=== PATIENT | female | born 1955 | race Caucasian/White ===

== ENCOUNTER 2019-12-19 12:17 | Inpatient (IN) | payer OTHER ==
[~2019-12-19] VITALS: Ht 160 cm; Wt 101.6 kg
[2019-12-19 13:02] VITALS: BP 132/84
--- NOTE | 2019-12-19 13:09 | NUR ---
WAIT AT LOBBY. HANDED ON URINE CUP.
--- NOTE | 2019-12-19 13:44 | NUR ---
Patient ambulated to chair A.
--- NOTE | 2019-12-19 15:14 | NUR ---
PT AMBULATED TO ER BED 11
--- NOTE | 2019-12-19 16:01 | NUR ---
DAUGHTER AT BEDSIDE.
--- NOTE | 2019-12-19 16:01 | NUR ---
64 Y/F PRESENTS TO ED WITH COMPLAINTS OF UTI X 3 DAY. PT REPORTS LOW BACK PAIN, ABD CRAMPS 10/10. URINARY FREQUENCY. DENIES ANY BURNING. PT REPORTS NAUSEA, LACK OF APPETITE. PT CO FOUL SMELLING URINE AND STOOL. ABDOMEN SOFT, ROUND, AND BS ACTIVE IN ALL 4 QUADRANTS. PER DAUGHTER PT HAS BEEN ACTING "BIZARRE". PT A &O X 4. HX OF ANXIETY, HTN, DEPRESSION, BARIATRIC SX ALLERGIES- PENICILLIN
--- NOTE | 2019-12-19 16:50 | NUR ---
DR. RODRIGUEZ AT BEDSIDE.
[2019-12-19] MEDS ORDERED: NACL 0.9% 1,000 ML IV SCH (16:57)
[2019-12-19] MEDS ORDERED: LEVOFLOXACIN 500 MG/D5W PREMIX 100 ML IV ONE (17:00)
[2019-12-19] MEDS ORDERED: MORPHINE SULFATE 4 MG/ML SYR IVP ONE (17:10)
[2019-12-19] MEDS ORDERED: ONDANSETRON 4 MG/2 ML VIAL IVP ONE (17:10)
--- NOTE | 2019-12-19 17:16 | NUR ---
PT AT CT VIA AMINATA
--- NOTE | 2019-12-19 17:37 | NUR ---
MORPHINE, ZOFRAN ADMINISTERED. NACL BOLUS AND LEVO RUNNING
[2019-12-19] MEDS ORDERED: ALPR2TAB1 PO (17:48)
[2019-12-19] MEDS ORDERED: QUET100T PO ×2 (17:48→20:13)
[2019-12-19] MEDS ORDERED: SERT100T PO ×2 (17:48→20:13)
[2019-12-19] MEDS ORDERED: ATEN100T6 PO (17:48)
[2019-12-19 18:00] LABS: BASOPHILS # (AUTO) 0.1 K/uL (0.00-0.22); BASOPHILS % (AUTO) 1.4 % (0.0-2.0); EOSINOPHILS # (AUTO) 0.1 K/uL (0-0.4); EOSINOPHILS % (AUTO) 0.8 % (0.0-4.0); HEMATOCRIT 31.9 % (36-48); HEMOGLOBIN 10.3 g/dL (12.0-16.0); LYMPHOCYTES # (AUTO) 1.9 K/uL (2.5-16.5); LYMPHOCYTES % (AUTO) 20.3 % (20.5-51.1); MEAN CORPUSCULAR HEMOGLOBIN 28 pg (27-31); MEAN CORPUSCULAR HGB CONC 32 g/dL (33-37); MEAN CORPUSCULAR VOLUME 88.1 fL (80-94); MONOCYTES # (AUTO) 0.6 K/uL (0.8-1.0); MONOCYTES % (AUTO) 6.2 % (1.7-9.3); NEUTROPHILS # (AUTO) 6.6 K/uL (1.8-7.7); NEUTROPHILS % (AUTO) 71.3 % (42.2-75.2); PLATELET COUNT (AUTO) 302 K/uL (140-450); RED BLOOD CELL COUNT(AUTO) 3.62 MIL/uL (4.20-5.40); RED CELL DISTRIBUTION WIDTH 16.1 % (11.6-13.7); WHITE BLOOD COUNT (AUTO) 9.3 K/uL (4.8-10.8)
[2019-12-19 18:05] LABS: ALBUMIN 3.7 g/dL (3.4-5.0); CARBON DIOXIDE 27.1 mmol/L (21-32); CREATININE 0.6 mg/dL (0.6-1.3); POTASSIUM 3.1 mmol/L (3.5-5.1); TOTAL BILIRUBIN 0.7 mg/dL (0.0-1.0)
[2019-12-19] MEDS ORDERED: guaiFENesin DM 200/20 MG-10 ML 10 ML UDC PO PRN (18:20)
[2019-12-19] MEDS ORDERED: ONDANSETRON 4 MG/2 ML VIAL IM/IVP PRN (18:20)
[2019-12-19] MEDS ORDERED: ACETAMINOPHEN 325 MG TAB PO PRN (18:20)
[2019-12-19] MEDS ORDERED: DOCUSATE SODIUM 100 MG GELCAP PO PRN (18:20)
--- NOTE | 2019-12-19 19:00 | NUR ---
Patient will be admitted to care of DR. GONZALEZ. Admited to Med/Surg. Will go to [id number]. Belongings list completed. Report to LEONOR.
--- NOTE | 2019-12-19 19:00 | NUR ---
RECEIVED REPORT FROM ER NURSE SILVIA. WILL ENDORSE PATIENT TO NIGHT NURSE.
[2019-12-19] MEDS ORDERED: MECLIZINE 25 MG TAB PO PRN (19:15)
[2019-12-19 19:30] VITALS: BP 133/80
--- NOTE | 2019-12-19 19:30 | NUR ---
RECIEVED PT AAOX4, NID , IV SITE INTACT AND PATNT , FALL RISK - AMBULATES W/ 1 PERSON ASSIST , - BERABLE PAIN , ADMISSION ASSESEMENT DOND , MRSA SENT TO LAB . POC DISCUSSED AND VERBALIZE UNDERSTANDING WILL CONT. TO MONITOR.
[2019-12-19 20:03] LABS: PROTHROMBIN TIME 10.2 secs (10.8-13.4)
[2019-12-19 20:12] LABS: CHOL/HDL RATIO 2.5 (1-4.5); FREE T4 (FREE THYROXINE) 1.21 ng/dL (0.76-1.46); MAGNESIUM 1.9 mg/dL (1.8-2.4); PHOSPHORUS 3.5 mg/dL (2.5-4.9); THYROID STIMULATING HORMONE 0.42 uIU/mL (0.34-3.74)
[2019-12-19] MEDS ORDERED: TIZA4CAP PO (20:13)
[2019-12-19] MEDS ORDERED: DEXL60EC PO (20:13)
[2019-12-19] MEDS ORDERED: CLON0.3T23 PO (20:13)
[2019-12-19] MEDS ORDERED: ORE25 PO (20:13)
[2019-12-19] MEDS ORDERED: VITA1TAB44 PO (20:13)
[2019-12-19] MEDS ORDERED: HYDR100T79 PO (20:13)
[2019-12-19] MEDS ORDERED: FLUCONAZOLE 100 MG TAB PO ONE (20:25)
[2019-12-19] MEDS ORDERED: ALBUTEROL SULFATE/IPRATROPIU 3 ML SOL IH PRN (20:30)
[2019-12-19] MEDS: NACL 0.9% 1,000 ML IV SCH (20:36)
[2019-12-19] MEDS: NYSTATIN POW 100 MU/GM 15 GM BTL TP SCH (21:00)
[2019-12-19] MEDS ORDERED: QUEtiapine FUMARATE 100 MG TAB PO SCH (21:00)
[2019-12-19] MEDS: ALBUTEROL SULFATE/IPRATROPIU 3 ML SOL IH SCH (21:25)
[2019-12-19] MEDS ORDERED: CLINDAMYCIN 600 MG/4 ML VIAL ONE (21:36)
[2019-12-19] MEDS ORDERED: FLUCONAZOLE 100 MG TAB ONE ×2 (21:49)
--- NOTE | 2019-12-19 22:00 | NUR ---
STRAIGHT CAT - DONE - PROCEDURE TOLERATED- URINE SPECIMEN SENT TO LAB.
[2019-12-19] MEDS: ALPRAZolam 0.5 MG TAB PO SCH (22:05)
[2019-12-19] MEDS: QUEtiapine FUMARATE 100 MG TAB PO SCH (22:06)
[2019-12-19] MEDS: CLINDAMYCIN 600 MG in DEXTROSE 5% 50 ML IV SCH (22:07)
[2019-12-19 22:11] LABS: BARBITURATE, URINE NEG. ng/ml (NEG <=200); BENZODIAZEPINE, URINE POS. ng/mL (NEG <=200); CANNABINOID, URINE NEG. ng/mL (NEG <=50); COCAINE, URINE NEG. ng/mL (NEG <=300); OPIATE, URINE NEG. ng/mL (NEG <=2000); PHENCYCLIDINE SCREEN,URINE NEG. ng/mL (NEG <=25)
[2019-12-19] MEDS ORDERED: KCL 20 MEQ/WATER INJ PREMIX 200 ML IV PRN (23:10)
[2019-12-19 23:11] LABS: APPEARANCE,URINE SLIGHTLY CLOUDY (CLEAR); BILIRUBIN,URINE NEGATIVE (NEGATIVE); BLOOD, URINE NEGATIVE (NEGATIVE); COLOR,URINE YELLOW (YELLOW); LEUKOCYTE ESTERASE ,URINE NEGATIVE (NEGATIVE); NITRITE, URINE NEGATIVE (NEGATIVE); UGLUCOSE NEGATIVE (NEGATIVE)
[2019-12-19] MEDS ORDERED: KCL 20 MEQ/WATER INJ PREMIX 200 ML IV ONE (23:15)
--- NOTE | 2019-12-20 02:15 | NUR ---
THE SECOND BAG OF POTASSIM CHLORIDE 20 MEQ TIV GIVEN W/ PACKAGE NUMBERS [id number] - W/ CHARGE NURSE ZAYRA KAY.
[2019-12-20 03:04] VITALS: BP 130/65
--- NOTE | 2019-12-20 04:00 | NUR ---
NO S/ S OF ACUTE DISTRESS NOTED AT THIS WEN.E
[2019-12-20] MEDS: NACL 0.9% 1,000 ML IV SCH (04:41)
[2019-12-20] MEDS ORDERED: CLINDAMYCIN 600 MG/4 ML VIAL ONE (05:31)
[2019-12-20] MEDS: CLINDAMYCIN 600 MG in DEXTROSE 5% 50 ML IV SCH ×3 (05:44→20:57)
--- NOTE | 2019-12-20 06:00 | NUR ---
RESTING ON BED COMFORTABLY.
[2019-12-20 06:11] LABS: BASOPHILS % (AUTO) 0.2 % (0.0-2.0); EOSINOPHILS # (AUTO) 0.1 K/uL (0-0.4); EOSINOPHILS % (AUTO) 1.2 % (0.0-4.0); HEMATOCRIT 28.6 % (36-48); HEMOGLOBIN 8.9 g/dL (12.0-16.0); LYMPHOCYTES % (AUTO) 29.9 % (20.5-51.1); MEAN CORPUSCULAR HEMOGLOBIN 29 pg (27-31); MEAN CORPUSCULAR HGB CONC 31 g/dL (33-37); MEAN CORPUSCULAR VOLUME 92.1 fL (80-94); MONOCYTES # (AUTO) 0.6 K/uL (0.8-1.0); MONOCYTES % (AUTO) 9.2 % (1.7-9.3); NEUTROPHILS % (AUTO) 59.5 % (42.2-75.2); PLATELET COUNT (AUTO) 232 K/uL (140-450); RED CELL DISTRIBUTION WIDTH 16.7 % (11.6-13.7); WHITE BLOOD COUNT (AUTO) 6.7 K/uL (4.8-10.8)
[2019-12-20 06:30] LABS: ANION GAP 11.9 (8-16); CARBON DIOXIDE 25.6 mmol/L (21-32); CREATININE 0.6 mg/dL (0.6-1.3); POTASSIUM 3.5 mmol/L (3.5-5.1)
[2019-12-20] MEDS: ALBUTEROL SULFATE/IPRATROPIU 3 ML SOL IH SCH ×2 (07:10→20:49)
--- NOTE | 2019-12-20 07:22 | NUR ---
NDORSED- PT - STABLE . INFORM JOSÉ ANTONIO ABOUT THE PHARMACIST SAID THE LEVAQUIN SHOULD BE GIVEN Q 48 DUE TO BUN AND CREA IS REMARKABLE.
--- NOTE | 2019-12-20 07:53 | NUR ---
RECEIVED BEDSIDE REPORT FROM PM RN PT AWAKE IN BED ALL SAFETY MEASURES ARE IN PLACE WILL CONTINUE TO MONITOR.
--- NOTE | 2019-12-20 08:13 | NUR ---
DISCHARGE PLANNING: THIS IS A 64 YEAR OLD FEMALE FROM HOME, WHO CAME IN DUE TO FOUL SMELLING URINE AND ALTERED MENTAL STATUS. PAST MEDICAL HISTORY OF RHEUMATOID ARTHRITIS, SLE, FIBROMYALGIA, HTN, CHRONIC BACK PAIN, DEPRESSION AND LEFT ROTATOR CUFF INJURY. INITIAL DIAGNOSIS OF UTI AND ALOC. CURRENT LABS INCLUDE WBC 6.7, H/H 8.9/28.6, NA/K 148/3.5, BUN/CREA 13/0.6. UDS SHOWED POSITIVE FOR BENZO. URINE, MRSA NARES AND BLOOD CULTURES PENDING. CXR SHOWED BIBASILAR ATELECTASIS VS INFILTRATE AND BORDERLINE CARDIOMEGALY. HEAD CT NEGATIVE. ON LEVOFLOXACIN AND CLINDAMYCIN. PSYCHE CONSULT WITH DR BRAN IN PLACE. FOR PARANOIA. DC PLAN PENDING ON PATIENT'S RESPONSE TO TREATMENT.
--- NOTE | 2019-12-20 08:36 | NUR ---
PATIENT HAS BEEN SCREENED AND CATEGORIZED MODERATE NUTRITION RISK. PATIENT WILL BE SEEN WITHIN 3-5 DAYS OF ADMISSION. 12/22/19 12/24/[address]
[2019-12-20 08:44] VITALS: BP 124/66
[2019-12-20] MEDS: NACL 0.45% 1,000 ML IV SCH ×2 (08:45→18:45)
[2019-12-20] MEDS: NYSTATIN POW 100 MU/GM 15 GM BTL TP SCH ×2 (09:00→21:00)
[2019-12-20] MEDS: LEVOFLOXACIN 750 MG/D5W PREMIX 150 ML IV SCH (09:09)
[2019-12-20] MEDS: ATENOLOL 50 MG TAB PO SCH (09:10)
[2019-12-20] MEDS: SERTRALINE 50 MG TAB PO SCH (09:11)
--- NOTE | 2019-12-20 09:15 | NUR ---
FREQUENT ROUNDING ON PT PT APPEARS STABLE AND IN NO APPARENT DISTRESS. ALL SAFETY MEASURES ARE IN PLACE WILL CONTINUE TO MONITOR
[2019-12-20] MEDS: ALPRAZolam 0.5 MG TAB PO SCH ×3 (09:23→18:11)
--- NOTE | 2019-12-20 11:06 | NUR ---
Quality Control Operator Note: Basic Screen: Yes High Risk DC Screen [place]: ROBERTH Phelps Relationship: DAUGHTER Pre-Admission Living Arrangements: Lives with Other Prior ADL Independent Current Home Health Name/Tel: N/A Current DME/02 Name/Tel: [facility] Current Hospice Name/Tel: N/A Current Dialysis Name/Tel: N/A Healthcare Decision Maker: Patient Advance Directive No - REFUSED Information Taught: Advance Directive Person Taught: Patient Teaching Tools: Verbal Factors Affecting Learning: None Participation Level: Refused Evaluation: Verbalizes Understanding Needs Additional Education: No Discipline: Case Mgt/Social Svcs Tentative Discharge Plan/Destination: No Needs Identified Will require assistance post discharge: No Referred to [place] Operator: No Tentative Discharge Plan Summary: Patient is a 64-year-old female admitted for UTI and ALOC. Patient has PMHX of rheumatoid arthritis, SLE, fibromyalgia, hypertension, chronic back pain, and rotator cuff injury. Patient was admitted from home where she lives with her daughter. SW met with patient at bedside to verify demographics. Patient stated she has a history of depression and sees a mental health clinician COY Lee at [facility] [phone]. Patient reports no history of susbtance abuse. When offered relevant resources, patient refused. Tentative discharge plan for patient is to return home. No further needs identified. Signature: KAREN Bedoya Date: Dec 20, 2019 Time: 11:01
--- NOTE | 2019-12-20 11:46 | NUR ---
FREQUENT ROUNDING ON PT PT APPEARS STABLE AND IN NO APPARENT DISTRESS. ALL SAFETY MEASURES ARE IN PLACE WILL CONTINUE TO MONITOR
--- NOTE | 2019-12-20 13:46 | NUR ---
FREQUENT ROUNDING ON PT PT APPEARS STABLE AND IN NO APPARENT DISTRESS. ALL SAFETY MEASURES ARE IN PLACE WILL CONTINUE TO MONITOR
--- NOTE | 2019-12-20 15:34 | NUR ---
FREQUENT ROUNDING ON PT PT APPEARS STABLE AND IN NO APPARENT DISTRESS. ALL SAFETY MEASURES ARE IN PLACE WILL CONTINUE TO MONITOR
[2019-12-20] MEDS: HYDROcodone/APAP 7.5/325 MG 1 TAB PO PRN ×2 (16:44→20:57)
--- NOTE | 2019-12-20 17:34 | NUR ---
FREQUENT ROUNDING ON PT PT APPEARS STABLE AND IN NO APPARENT DISTRESS. ALL SAFETY MEASURES ARE IN PLACE WILL CONTINUE TO MONITOR
--- NOTE | 2019-12-20 19:34 | NUR ---
ENDORSED PT TO PM RN PT AWAKE IN BED IVF INFUSING IV SITE PATENT AND SHOWS NO SIGNS OF INFILTRATION OR INFLAMMATION. ALL SAFETY MEASURES ARE IN PLACE. CALL LIGHT WITHIN REACH
--- NOTE | 2019-12-20 19:35 | NUR ---
RECEIVED PT FROM AM NURSE IN STABLE CONDITION. MED SURG PT. AWAKE,ALERT AND ORIENTED X4. WITH NO C/O ANY DISCOMFORT NOR PAIN NOTED. IVF INFUSING WELL. AMBULATORY TO BATHROOM. BED ON LOW POSITION. FREQ ROUNDS NEEDED. SIDE RAILS UP X2. CALL LIGHT PLACED WITHIN REACH. WILL CONTINUE TO MONITOR.
--- NOTE | 2019-12-20 20:54 | NUR ---
RECEIVED PT FROM AM SHIFT. PT IN NO APPARENT RESPIRATORY DISTRESS AT THIS TIME; HR 68, RR 16, SPO2 96% ON ROOM AIR AND A CLEAR BREATH SOUNDS. HHN TX GIVEN ORDERED WITH NO ADVERSE REACTION. PT INFORMED TO CALL RN OR JUDGE WHEN EXPERIENCING SOB FOR PRN TX. HOB > 30. WILL CONTINUE TO MONITOR PT.
[2019-12-20] MEDS: QUEtiapine FUMARATE 100 MG TAB PO SCH (20:57)
--- NOTE | 2019-12-20 22:00 | NUR ---
ASSISTED UP TO THE BATHROOM. PT NEED ASSIST DUE TO WEAKNESS.
--- NOTE | 2019-12-20 22:00 | NUR ---
PT REQUESTED FOR SOME CRACKERS AND JUICE. PROVIDED AND TOLERATED WELL.
[2019-12-20] MEDS: ZOLPIDEM 5 MG TAB PO PRN (22:52)
--- NOTE | 2019-12-21 00:30 | NUR ---
PT CONFUSED . ALL DRESS UP AND SAID SHE NEEDS TO GO HOME. EXPLAINED THAT SHE HAS TO STAY BECAUSE SHE IS SICK. AFTER PT GIVEN SOME JUICE, AND CRACKERS AGAIN DECIDED SHE WILL STAY.
[2019-12-21 00:45] VITALS: BP 118/85
--- NOTE | 2019-12-21 03:00 | NUR ---
ASLEEP. NO S/S OF ANY DISCOMFORT NOTED.
[2019-12-21] MEDS: NACL 0.45% 1,000 ML IV SCH ×3 (04:38→14:45)
[2019-12-21] MEDS: CLINDAMYCIN 600 MG in DEXTROSE 5% 50 ML IV SCH ×4 (05:00→21:42)
[2019-12-21 06:19] LABS: BASOPHILS % (AUTO) 0.3 % (0.0-2.0); EOSINOPHILS # (AUTO) 0.1 K/uL (0-0.4); EOSINOPHILS % (AUTO) 1.2 % (0.0-4.0); HEMATOCRIT 30.7 % (36-48); HEMOGLOBIN 9.6 g/dL (12.0-16.0); LYMPHOCYTES % (AUTO) 22.5 % (20.5-51.1); MEAN CORPUSCULAR HEMOGLOBIN 29 pg (27-31); MEAN CORPUSCULAR HGB CONC 31 g/dL (33-37); MEAN CORPUSCULAR VOLUME 92.4 fL (80-94); MONOCYTES # (AUTO) 0.8 K/uL (0.8-1.0); MONOCYTES % (AUTO) 8.5 % (1.7-9.3); NEUTROPHILS % (AUTO) 67.5 % (42.2-75.2); PLATELET COUNT (AUTO) 251 K/uL (140-450); RED BLOOD CELL COUNT(AUTO) 3.33 MIL/uL (4.20-5.40); RED CELL DISTRIBUTION WIDTH 16.3 % (11.6-13.7); WHITE BLOOD COUNT (AUTO) 8.8 K/uL (4.8-10.8)
[2019-12-21 06:23] LABS: ANION GAP 12.2 (8-16); CARBON DIOXIDE 26.3 mmol/L (21-32); CREATININE 0.6 mg/dL (0.6-1.3); POTASSIUM 3.5 mmol/L (3.5-5.1)
[2019-12-21] MEDS: HYDROcodone/APAP 7.5/325 MG 1 TAB PO PRN ×2 (07:00→23:15)
[2019-12-21] MEDS: ALBUTEROL SULFATE/IPRATROPIU 3 ML SOL IH SCH ×2 (07:10→20:39)
--- NOTE | 2019-12-21 07:27 | NUR ---
ENDORSED PT IN STABLE CONDITION TO AM NURSE.
--- NOTE | 2019-12-21 07:37 | NUR ---
SHIFT REPORT RECEIVED FROM MATERIALS AND PROCESSES MANAGER NURSE. PT IS IN ED AT THIS TIME SLEEPING. NO DISTRESS NOTED. SAFETY MEASURES IN PLACE. CALL LIGHT IN REACH.
[2019-12-21 08:00] VITALS: BP 111/60
[2019-12-21 08:08] LABS: T4 (THYROXINE) 6.8 ug/dL (4.5-12.0)
[2019-12-21] MEDS: SERTRALINE 50 MG TAB PO SCH (09:01)
[2019-12-21] MEDS: ATENOLOL 50 MG TAB PO SCH (09:01)
[2019-12-21] MEDS: LEVOFLOXACIN 750 MG/D5W PREMIX 150 ML IV SCH (09:01)
[2019-12-21] MEDS: ALPRAZolam 0.5 MG TAB PO SCH ×3 (09:02→16:48)
[2019-12-21 09:09] LABS: MAGNESIUM 1.8 mg/dL (1.8-2.4); PHOSPHORUS 3.8 mg/dL (2.5-4.9)
--- NOTE | 2019-12-21 09:30 | NUR ---
PT SAYS SHE WANTS TO GO HOME. TALKED TO PATIENT AND REORIENTED HER. PT IS CALM NOW. NO DISTRESS. WILL CONTINUE TO MONITOR. CALL LIGHT IN REACH.
[2019-12-21 10:11] LABS: FOLIC ACID 5.3 ng/mL (>3.0)
[2019-12-21] MEDS: NYSTATIN POW 100 MU/GM 15 GM BTL TP SCH ×2 (10:17→21:50)
--- NOTE | 2019-12-21 12:00 | NUR ---
PT IS RESTING IN BED ATT HIS TIME. FAMILY BE BEDSIDE. NO COMPLAINS OF PAIN. CALL LIGHT IN REACH.
--- NOTE | 2019-12-21 14:37 | NUR ---
PT IS RESTING IN BED AT HIS TIME. NO DISTRESS NOTED. NO COMPLAINS OF PAIN. CALL LIGHT IN REACH.
--- NOTE | 2019-12-21 15:00 | NUR ---
PT IS AWAKE IN BED. PT SAYS SHE WANTS TO GO HOME. REORIENTED PATIENT TO HER ENVIRONMENT AND HER CONDITION. NO DISTRESS NOTED. CALL LIGHT IN REACH.
--- NOTE | 2019-12-21 15:29 | NUR ---
PER PATIENT SHE HAD FLU VACCINE MONTH OF , PATIENT CLAIMED I GET IT EVERY YEAR
--- NOTE | 2019-12-21 16:00 | NUR ---
P.T. NOTES Pt DECLINED TO PARTICIPATE W/ P.T., STATES SHE JUST GOT COMFORTABLE, WAS IN PAIN EARLIER, WANTS TO REST & DOES NOT WANT PAIN TO OCCUR AGAIN; EXPLAINED RISKS OF BEDBOUND, REVIEWED HEP, APPRECIATIVE; CALL CONNELL, PHONE, TABLE IN REACH, BED ALARM ON; Hgb=9.6; FF UP TOMORROW IF PARTICIPATIVE.
--- NOTE | 2019-12-21 18:13 | NUR ---
PT IS SITTING IN BED EATTING DINNER AT THIS TIME. NO COMPLAINS OF PAIN. CALL LIGHT IN REACH
--- NOTE | 2019-12-21 19:36 | NUR ---
SHIFT REPORT GIVEN TO HEALTHCARE MANAGER NURSE. PT IS IN BED IN STABLE CONDITION. CALL LIGHT IN REACH.
--- NOTE | 2019-12-21 19:37 | NUR ---
RECD. RESTING IN BED, AWAKE, A/OX4. RESPIRATION EVEN AND UNLABORED. IV OF 1/2 NS INFUSING AT 60 ML/HR, LEFT WRIST G24. WATCHING TV.AMBULATE WITH ASSISTANCE. PLAN OF CARE FOR THE SHIFT DISCUSSED. VERBALIZED UNDERSTANDING. DENIES PAIN 0/10.
--- NOTE | 2019-12-21 19:45 | NUR ---
ABLE TO COLLECT STOOL FOR C-DIFF. WILL SEND TO LAB.
[2019-12-21 20:00] VITALS: BP 105/57
--- NOTE | 2019-12-21 21:30 | NUR ---
SPECIMEN FOR C-DIFF DOES NOT QUALIFY FOR C-DIFF CRITERIA, IT IS NOT WATERY.
[2019-12-21] MEDS: QUEtiapine FUMARATE 100 MG TAB PO SCH (21:49)
--- NOTE | 2019-12-21 22:00 | NUR ---
CONFUSED AT TIMES, REORIENTED TO HOSPITAL SETTING.
--- NOTE | 2019-12-21 22:30 | NUR ---
TOWELS, NEW GOWN AND SOAP GIVEN TO PATIENT, WANTS TO WASH HERSELF TOMORROW.
--- NOTE | 2019-12-21 23:00 | NUR ---
STATED SHE HAS CHEST PAIN DUE TO HER ANXIETY. INFORMED DR. MONROY, REFUSED TO ORDER XANAX, PATIENT HAS ALREADY THREE DOSES OF XANAX.
[2019-12-21] MEDS: ZOLPIDEM 5 MG TAB PO PRN (23:14)
--- NOTE | 2019-12-21 23:15 | NUR ---
UNABLE TO SLEEP, MEDICATED WITH AMBIEN PER MD ORDER.
--- NOTE | 2019-12-22 00:15 | NUR ---
SLEEPING COMFORTABLY IN BED.
[2019-12-22] MEDS: NACL 0.45% 1,000 ML IV SCH ×3 (00:45→10:45)
--- NOTE | 2019-12-22 03:00 | NUR ---
AWAKE, TRYING TO GET OUT OF HER ROOM, ASKING WHERE IS HER ROOM. CONFUSED, REORIENTED TO HOSPITAL SETTING. ASSISTED BACK TO BED.
[2019-12-22 04:00] VITALS: BP 115/59
[2019-12-22] MEDS: CLINDAMYCIN 600 MG in DEXTROSE 5% 50 ML IV SCH ×3 (05:38→13:00)
--- NOTE | 2019-12-22 06:10 | NUR ---
IV INSERTED ON THE LEFT FOREARM-G24, NO SWELLING, NO PAIN ACCDG TO PT IN THE SITE. PATENT AND INTACT
[2019-12-22 06:29] LABS: BASOPHILS # (AUTO) 0.1 K/uL (0.00-0.22); EOSINOPHILS # (AUTO) 0.1 K/uL (0-0.4); EOSINOPHILS % (AUTO) 1.2 % (0.0-4.0); HEMATOCRIT 28.8 % (36-48); HEMOGLOBIN 9.4 g/dL (12.0-16.0); LYMPHOCYTES # (AUTO) 2.1 K/uL (2.5-16.5); LYMPHOCYTES % (AUTO) 29.5 % (20.5-51.1); MEAN CORPUSCULAR HEMOGLOBIN 29 pg (27-31); MEAN CORPUSCULAR HGB CONC 33 g/dL (33-37); MEAN CORPUSCULAR VOLUME 88.8 fL (80-94); MONOCYTES # (AUTO) 0.6 K/uL (0.8-1.0); MONOCYTES % (AUTO) 7.7 % (1.7-9.3); NEUTROPHILS # (AUTO) 4.4 K/uL (1.8-7.7); NEUTROPHILS % (AUTO) 60.6 % (42.2-75.2); PLATELET COUNT (AUTO) 240 K/uL (140-450); RED BLOOD CELL COUNT(AUTO) 3.24 MIL/uL (4.20-5.40); RED CELL DISTRIBUTION WIDTH 15.6 % (11.6-13.7); WHITE BLOOD COUNT (AUTO) 7.3 K/uL (4.8-10.8)
[2019-12-22 06:57] LABS: CREATININE 0.7 mg/dL (0.6-1.3); POTASSIUM 3.8 mmol/L (3.5-5.1)
[2019-12-22 07:03] LABS: MAGNESIUM 1.8 mg/dL (1.8-2.4); PHOSPHORUS 3.1 mg/dL (2.5-4.9)
[2019-12-22 07:28] LABS: CARBON DIOXIDE 26.8 mmol/L (21-32)
--- NOTE | 2019-12-22 07:30 | NUR ---
RECEIVED REPORT FROM BENCH MOLDER NURSE. PT IS AWAKE AND ORIENTED. NO SIGNS OF DISTRESS. PT HAS IV AT LEFT WRIST 24G WITH NS AT 60ML/HR. PT IS ON ROOM AIR, AMBULATORY, REGULAR DIET. CALL LIGHT WITHIN PT'S REACH, BED ON LOW. SIDE RAILS UP. WILL CONTINUE TO MONITOR
[2019-12-22] MEDS ORDERED: INUL1CTB PO (08:47)
[2019-12-22] MEDS ORDERED: LEVO750T2 PO (08:47)
[2019-12-22] MEDS ORDERED: SERT100T PO (08:47)
--- NOTE | 2019-12-22 09:50 | NUR ---
SCHEDULED MORNING MEDS GIVEN. PT TOLERATED WELL.
[2019-12-22] MEDS: ALBUTEROL SULFATE/IPRATROPIU 3 ML SOL IH SCH (10:20)
[2019-12-22] MEDS: ALPRAZolam 0.5 MG TAB PO SCH ×2 (10:35→13:00)
[2019-12-22] MEDS: SERTRALINE 50 MG TAB PO SCH (10:35)
[2019-12-22] MEDS: NYSTATIN POW 100 MU/GM 15 GM BTL TP SCH (10:36)
[2019-12-22] MEDS: ATENOLOL 50 MG TAB PO SCH (10:36)
[2019-12-22] MEDS: LEVOFLOXACIN 750 MG/D5W PREMIX 150 ML IV SCH (10:42)
[2019-12-22 11:31] VITALS: BP 136/74
--- NOTE | 2019-12-22 11:40 | NUR ---
D/C ORDERS PRINTED AND SIGNED BY PATIENT. DISCHARGE PACKET AND INSTRUCTION GIVEN TO THE PATIENT.
[2019-12-22 12:00] VITALS: BP 132/68
--- NOTE | 2019-12-22 12:05 | NUR ---
SCHEDULED MEDICATION GIVEN.
--- NOTE | 2019-12-22 12:30 | NUR ---
PT REFUSED PNA AND FLU VACCINE
--- NOTE | 2019-12-22 13:05 | NUR ---
REMOVED IV, CANNULA INTACT. REMOVED WRISTBANDS. PT IS STABLE. PT IS WAITING FOR HER DAUGHTER TO PICK HER UP. ALL PT'S BELONGINGS INSIDE HER BAG.
--- NOTE | 2019-12-22 15:55 | NUR ---
PT WAS WHEELED OUT TO THE LOBBY TO BE PICKED BY NII LAUREN. PT IS STABLE.
== END 2019-12-22 15:55 | disposition home or self-care (01) | DRG 757 ==
LOC: MED 12:17 → MMU 18:20
PROVIDERS: ADMIT General Practice; ATTEND General Practice
DX: N76.0 Acute vaginitis (principal); J18.9 Pneumonia, unspecified organism; G93.41 Metabolic encephalopathy; E87.0 Hyperosmolality and hypernatremia; N39.0 Urinary tract infection, site not specified; E86.0 Dehydration; G89.29 Other chronic pain; I10 Essential (primary) hypertension; F41.9 Anxiety disorder, unspecified; M06.9 Rheumatoid arthritis, unspecified; M32.9 Systemic lupus erythematosus, unspecified; M54.9 Dorsalgia, unspecified; Z96.653 Presence of artificial knee joint, bilateral; F29 Unspecified psychosis not due to a substance or known physiological condition; E87.6 Hypokalemia; E87.8 Other disorders of electrolyte and fluid balance, not elsewhere classified; I72.8 Aneurysm of other specified arteries; F31.9 Bipolar disorder, unspecified; D63.8 Anemia in other chronic diseases classified elsewhere; Z88.0 Allergy status to penicillin; Z79.899 Other long term (current) drug therapy; Z90.49 Acquired absence of other specified parts of digestive tract; Z98.84 Bariatric surgery status
CPT/HCPCS: 36415; 70450; 71045; 80048; 80053; 80305; 81003; 82150; 82607; 82728; 82746; 83036; 83540; 83605; 83690; 83735; 83880; 84100; 84436; 84439; 84443; 84479; 84484; 85025; 85045; 85610; 85730; 87040; 87081; 87086; 87804; 93005; 93880; 94640; 96365; 96375; 97112; 97116; 97161-GP; 97530; 99285; C1758; J1956; J2270; J2405; J3480; J3490; J7060; Q0092